=== PATIENT | female | born 1995 | race Caucasian/White ===

== ENCOUNTER → 2016-12-19 | Outpatient (CLI) | payer BC | END | disposition home or self-care (01) | LOC: C.LAB1850 13:50 | PROVIDERS: ATTEND Obstetrics & Gynecology | DX: Z32.01 Encounter for pregnancy test, result positive (principal) ==

== ENCOUNTER → 2016-12-21 | Outpatient (CLI) | payer BC | END | disposition home or self-care (01) | LOC: C.LAB1850 13:52 | PROVIDERS: ATTEND Obstetrics & Gynecology | DX: O20.0 Threatened abortion (principal); Z3A.00 Weeks of gestation of pregnancy not specified ==

== ENCOUNTER → 2016-12-24 | Outpatient (CLI) | payer BC | END | disposition home or self-care (01) | LOC: C.LAB1850 08:17 | PROVIDERS: ATTEND Obstetrics & Gynecology | DX: O20.0 Threatened abortion (principal) ==

== ENCOUNTER → 2017-01-04 | Outpatient (CLI) | payer BC | END | disposition home or self-care (01) | LOC: C.LAB1850 11:06 | PROVIDERS: ATTEND Obstetrics & Gynecology | DX: O20.0 Threatened abortion (principal) ==

== ENCOUNTER → 2017-01-11 | Outpatient (CLI) | payer BC | END | disposition home or self-care (01) | LOC: C.LAB1850 09:31 | PROVIDERS: ATTEND Obstetrics & Gynecology | DX: O03.9 Complete or unspecified spontaneous abortion without complication (principal); Z3A.00 Weeks of gestation of pregnancy not specified ==

== ENCOUNTER → 2017-04-25 | Outpatient (CLI) | payer BC | END | disposition home or self-care (01) | LOC: C.LAB1850 08:35 | PROVIDERS: ATTEND Obstetrics & Gynecology | DX: O09.299 Supervision of pregnancy with other poor reproductive or obstetric history, unspecified trimester (principal) ==

== ENCOUNTER → 2017-05-02 | Outpatient (CLI) | payer BC | END | disposition home or self-care (01) | LOC: C.LAB1850 08:36 | PROVIDERS: ATTEND Obstetrics & Gynecology | DX: O09.299 Supervision of pregnancy with other poor reproductive or obstetric history, unspecified trimester (principal) ==

== ENCOUNTER → 2017-05-28 | Outpatient (CLI) | payer BC | END | disposition home or self-care (01) | LOC: C.PAPS 08:07 | PROVIDERS: ATTEND Obstetrics & Gynecology | DX: Z34.81 Encounter for supervision of other normal pregnancy, first trimester (principal) ==

== ENCOUNTER → 2017-05-28 | Outpatient (CLI) | payer BC ==
[2017-05-28 18:36] LABS: URINE APPEARANCE CLEAR (CLEAR); URINE BILIRUBIN NEG (NEG); URINE COLOR YELLOW; URINE NITRITE NEG (NEG); URINE SPECIFIC GRAVITY 1.015 (1.000-1.030); UROBILINOGEN NEG (NEG)
[2017-05-28 18:40] LABS: MANUAL MICROSCOPIC REQUIRED? NO; REVIEW REQ? NO
[2017-05-31 00:55] LABS: CHLAMYDIA TRACH RNA*** NOT DETECTED (NOT DETECTED); GC (NEIS GONORRHOEAE)RNA** NOT DETECTED (NOT DETECTED)
== END | disposition home or self-care (01) ==
LOC: C.LABSPEC 17:25
PROVIDERS: ATTEND Obstetrics & Gynecology
DX: Z34.81 Encounter for supervision of other normal pregnancy, first trimester (principal); Z3A.00 Weeks of gestation of pregnancy not specified

== ENCOUNTER → 2017-05-28 | Outpatient (CLI) | payer BC ==
[2017-05-28 16:42] LABS: BASO % 0.2 %; BASO ABS # 0.01 K/uL (0-0.2); COMPLETE YES; EOS % 1.2 %; HEMATOCRIT 38.5 % (37-47); IG% 0.2 %; LYMPH % 31.7 %; MEAN CELL VOLUME 86.7 fL (80-100); MEAN CORPUSCULAR HEMOGLOBIN 28.4 pg (25-34); MEAN CORPUSCULAR HGB CONC 32.7 g/dl (32-36); MEAN PLATELET VOLUME 11.4 fL (7.4-10.4); MONO % 8.5 %; NEUT % 58.2 %; PLATELET COUNT 211 K/uL (130-400); RED BLOOD COUNT 4.44 M/uL (4.2-5.4); WHITE BLOOD COUNT 5.04 K/uL (4.8-10.8)
== END | disposition home or self-care (01) ==
LOC: C.LAB1850 15:29
PROVIDERS: ATTEND Obstetrics & Gynecology
DX: Z34.81 Encounter for supervision of other normal pregnancy, first trimester (principal); Z3A.00 Weeks of gestation of pregnancy not specified

== ENCOUNTER → 2017-07-16 | Outpatient (CLI) | payer BC ==
[2017-07-16 18:15] LABS: GTGD 50 Grams
[2017-07-18 14:35] LABS: AFP CONCENTRATION 21.5 NG/ML; AFP MULTIPLE OF MEDIAN 0.73; AFPTS INSULIN DEP DIABETIC? NO; AFPTS MATERNAL WT 172 LBS; ALPHA-FETOPROTEIN RACE CAUCASIAN=W; CIGARETTE SMOKER? NOT PROVIDED; HISTORY OF NTD NO; REPEAT SAMPLE? NO
== END | disposition home or self-care (01) ==
LOC: C.LAB1850 16:07
PROVIDERS: ATTEND Obstetrics & Gynecology
DX: Z34.82 Encounter for supervision of other normal pregnancy, second trimester (principal)

== ENCOUNTER → 2017-08-05 | Outpatient (CLI) | payer BC ==
[2017-08-05 16:59] LABS: URINE APPEARANCE CLEAR (CLEAR); URINE BILIRUBIN NEG (NEG); URINE COLOR YELLOW; URINE NITRITE NEG (NEG); URINE SPECIFIC GRAVITY 1.015 (1.000-1.030); UROBILINOGEN NEG (NEG)
[2017-08-05 17:01] LABS: MANUAL MICROSCOPIC REQUIRED? NO; REVIEW REQ? NO
== END | disposition home or self-care (01) ==
LOC: C.LAB1850 15:40
PROVIDERS: ATTEND Obstetrics & Gynecology
DX: R30.0 Dysuria (principal)

== ENCOUNTER → 2017-10-08 | Outpatient (CLI) | payer OTHER ==
[2017-10-08 16:29] LABS: HEMATOCRIT 32.7 % (37-47); HEMOGLOBIN 10.9 g/dL (12.0-16.0)
== END | disposition home or self-care (01) ==
LOC: C.LAB1850 15:36
PROVIDERS: ATTEND Obstetrics & Gynecology
DX: Z34.02 Encounter for supervision of normal first pregnancy, second trimester (principal)

== ENCOUNTER 2018-01-02 22:50 | Inpatient (IN) | payer OTHER ==
[~2018-01-02] VITALS: Ht 170.2 cm; Wt 95.9 kg
[2018-01-02] MEDS ORDERED: LACTATED RINGER'S 1000ML 1,000 ML IV PRN (23:29)
[2018-01-02] MEDS ORDERED: CEFAZOLIN IV 2,000 MG in DEXTROSE 5% 50ML 50 ML IV SCH (23:45)
[2018-01-02] MEDS ORDERED: PREN1TAB29 (23:49)
[2018-01-02 23:50] VITALS: Ht 170.2 cm; Wt 95.9 kg
[2018-01-02 23:50] LABS: HEMATOCRIT 36.7 % (37-47); HEMOGLOBIN 12.3 g/dL (12.0-16.0); MEAN CELL VOLUME 80.1 fL (80-100); MEAN CORPUSCULAR HEMOGLOBIN 26.9 pg (25-34); MEAN CORPUSCULAR HGB CONC 33.5 g/dl (32-36); MEAN PLATELET VOLUME 11.6 fL (7.4-10.4); PLATELET COUNT 202 K/uL (130-400); RED CELL DISTRIBUTION WIDTH CV 13.9 % (11.5-14.5)
[2018-01-02] MEDS: CEFAZOLIN IV 2,000 MG in SYRINGE 0 ML IV SCH (23:51)
[2018-01-03] MEDS ORDERED: BUPIVACAINE 0.25% 30 ML VIAL ONE ×2 (00:52→10:17)
[2018-01-03] MEDS ORDERED: EpHEDrine SULFATE INJ 50 MG/ML AMP ONE (00:52)
[2018-01-03] MEDS ORDERED: FENTANYL 2MCG/ML ROPIV 1.25MG/ML 100ML BAG ONE (00:52)
[2018-01-03] MEDS ORDERED: FENTANYL CITRATE INJ 50 MCG/1 ML 2 ML VIAL ONE ×2 (00:54→10:18)
[2018-01-03] MEDS ORDERED: LACTATED RINGER'S 1000ML 500 ML IV PRN ×2 (01:13→01:31)
[2018-01-03] MEDS ORDERED: OXYTOCIN 30 UNITS/500ML NSS IV PRN ×2 (01:15→13:45)
[2018-01-03] MEDS: LACTATED RINGER'S 1000ML 1,000 ML IV SCH ×3 (01:30→12:17)
[2018-01-03] MEDS ORDERED: NALOXONE HCL INJ 1 MG in SODIUM CHLORIDE 0.9% 1000ML 1,000 ML IV PRN (01:31)
[2018-01-03] MEDS ORDERED: ONDANSETRON INJ 2 MG/ML 2 ML VIAL IV PRN (01:45)
[2018-01-03] MEDS ORDERED: NALOXONE HCL INJ 0.4 MG/1 ML VIAL/CARP IV PRN (01:45)
[2018-01-03] MEDS ORDERED: EpHEDrine SULFATE INJ 50 MG/ML AMP IV PRN (01:45)
[2018-01-03] MEDS ORDERED: NALBUPHINE HCL INJ 10 MG/ML AMP IV PRN (01:45)
[2018-01-03] MEDS ORDERED: FENTANYL CITRATE INJ 50 MCG/1 ML 2 ML VIAL XX ONE (01:45)
[2018-01-03] MEDS ORDERED: DiphenhydrAMINE HCL 50 MG/ML VIAL IV PRN (01:45)
[2018-01-03] MEDS: FENTANYL 2MCG/ML ROPIV 1.25MG/ML 100ML BAG EPI PRN ×2 (07:04→09:42)
[2018-01-03] MEDS: CEFAZOLIN IV 2,000 MG in SYRINGE 0 ML IV SCH (07:54)
--- NOTE | 2018-01-03 10:35 | Anesthesiology Progress Note ---
Post OP Pain Management Date & Time of Service January 03, 2018 at 10:30 Subjective Therapies: Epidural/IV Drugs, Marcaine, Fentanyl pt c/o pain 04/11 Objective Cathether Site: examined, palpated, intact, dry, non-tender, without erythma, without exudate Assessment & Plan Pain Relief Assessment: will bolus epidural catheter Plan: At 10:26am,pt epidural catheter bolused w/ 12 ml o.17% bupivacaine + 100 mcgs fentanyl ,w/ incremental aspirations and injections every 2 ml;no CSF or blood; vital signs stable
[2018-01-03] MEDS ORDERED: HYDROCORTISONE ACETATE 25 MG SUPP PR PRN ×2 (13:45→20:15)
[2018-01-03] MEDS ORDERED: ACETAMINOPHEN 325 MG TAB PO PRN ×2 (13:45→20:15)
[2018-01-03] MEDS ORDERED: OXYCODONE/ACETAMINOPHEN 5-325 TAB PO PRN ×2 (13:45→20:15)
[2018-01-03] MEDS ORDERED: LANOLIN OINT EXT PRN ×2 (13:45→20:15)
[2018-01-03] MEDS ORDERED: BENZOCAINE 20% AER SPR 82.5 GM CAN EXT PRN ×2 (13:45→20:15)
[2018-01-03] MEDS ORDERED: SUPERCREAM 0.870 % 15GM JAR EXT PRN ×2 (13:45→20:15)
--- NOTE | 2018-01-03 14:27 | Anesthesia Procedure Note ---
Anesthesia Epidural Removal Nt Date & Time January 03, 2018 at 14:27 Vital Signs Pain Intensity: 6.0 Notes Mental Status: alert / awake / arousable, participated in evaluation Nausea / Vomiting: adequately controlled Pain: adequately controlled Airway Patency, RR, SpO2: stable & adequate BP & HR: stable & adequate Hydration State: stable & adequate Neuraxial Anesthesia: was administered Anesthetic Complications: no major complications apparent, pt satisfied with anesthetic care Epidural: removed without complications, with tip intact
--- NOTE | 2018-01-03 14:41 | DELIVERY SUMMARY ---
DATE OF OPERATION: 01/03/2018 PREDELIVERY DIAGNOSES: 1. A 21-year-old G2, P0-0-1-0 at term. 2. Spontaneous labor. 3. Group B strep positive. POSTDELIVERY DIAGNOSES: 1. A 21-year-old G2, P0-0-1-0 at term. 2. Spontaneous labor. 3. Group B strep positive. PROCEDURES: Spontaneous vaginal delivery and repair of second degree perineal laceration. FINDINGS: Viable male , Apgars 8 and 9, weight pending. Please see nursery records. COMPLICATIONS: None. ANESTHESIA: Epidural. ESTIMATED BLOOD LOSS: 400 mL. DESCRIPTION OF DELIVERY: The patient progressed to complete with epidural anesthesia. She labored down and then she began to push. She then spontaneously vaginally delivered a viable male from the cephalic presentation. The head delivered in left occiput anterior position. No nuchal cord was noted. The anterior shoulder delivered, followed by the posterior shoulder, followed by the body of the baby, and was placed in mother's abdomen and a spontaneous cry was heard. The cord was doubly clamped and cut. Cord blood was obtained. The placenta was then delivered spontaneously intact with the 3-vessel cord. Pitocin was given. The uterus and vagina were cleared off all clots and debris. The uterus became firm. The cervix, vagina, and perineum were inspected and a second degree perineal laceration was noted that was deep, it went directly to the anal sphincter, however, this was not torn. Two figure of eight stitches were placed in the anterior and superior aspects of the anal sphincter muscle just to give it support and then the second degree perineal laceration was repaired in standard fashion with 3-0 Vicryl and a running stitch. Excellent hemostasis was observed. Sponge, instrument, and needle counts were correct at the conclusion of the delivery x2. The patient and baby tolerated the delivery well and are recovering in stable and good condition in the room. I attest to the content of the Intraoperative Record and any orders documented therein. Any exceptions are noted below. MTDD
[2018-01-03 16:45] VITALS: BP 138/82; PULSE 112; TEMP 36.5
[2018-01-03] MEDS: DOCUSATE SODIUM 100 MG CAP PO SCH (20:00)
[2018-01-03] MEDS: IBUPROFEN 600 MG TAB PO PRN (20:09)
[2018-01-03 20:10] VITALS: BP 122/80; PULSE 90; TEMP 36.8
[2018-01-03] MEDS ORDERED: IBUPROFEN 600 MG TAB PO PRN (20:15)
[2018-01-03] MEDS ORDERED: COUGH DROP (SUGAR FREE) LOZ 24 LOZ/1 BOX LOZ ONE (20:59)
[2018-01-04 00:01] VITALS: BP 118/74; PULSE 92; TEMP 37.1
[2018-01-04 03:15] VITALS: BP 120/81; PULSE 85; TEMP 37
[2018-01-04] MEDS: IBUPROFEN 600 MG TAB PO PRN ×5 (03:16→23:09)
--- NOTE | 2018-01-04 06:12 | Progress Note ---
Subjective January 04, 2018. Subjective conversation w/ patient, physical exam Ambulation: ambulating normally Voiding: no voiding problems Passing Gas: Yes Diet Tolerance: Regular Diet Lochia: Moderate Feeding Type: Bottle Feeding Review of Systems Constitutional: No problem reported Respiratory: No problem reported Cardiac: No problem reported Breast: No problem reported Abdomen: No problem reported Female : No problem reported Objective Vital Signs Date Time Temp Pulse Resp B/P (MAP) Pulse Ox O2 Delivery O2 Flow Rate FiO2 01/04/18 03:15 37.0 85 18 120/81 (94) Room Air 01/04/18 00:01 37.1 92 18 118/74 (89) Room Air 01/04/18 00:01 Room Air 01/03/18 20:10 36.8 90 16 122/80 (94) Room Air 01/03/18 20:10 Room Air 01/03/18 16:45 Room Air 01/03/18 16:45 36.5 112 16 138/82 (100) Room Air Physical Exam General Appearance: WELL-APPEARING, NO APPARENT DISTRESS Respiratory/Chest: no respiratory distress Cardiovascular: regular rate, rhythm Abdomen: non tender, soft Fundus: Firm Extremities: normal inspection Laboratory Results Last 24 Hours Test 01/04/18 04:44 Assessment and Plan Post- Day#: 1 Continue Routine Care: PPD#1 doing well. Routine care. Anticipate discharge home tomorrow.
--- NOTE | 2018-01-04 06:15 | Discharge Instructions ---
Discharge Instructions Date of Service January 04, 2018. Admission Reason for Admission: 40 Weeks Gestation Of Discharge Discharge Diagnosis / Problem: s/p Discharge Goals Goal(s): Routine recovery after delivery Activity Recommendations Activity Limitations: per Instructions/Follow-up section . Instructions / Follow-Up Instructions / Follow-Up ACTIVITY RECOMMENDATIONS: * Gradual return to full activity over the next 2-3 weeks. * No lifting - nothing heavier than baby over the next 2-3 weeks. * Do not engage in vigorous exercise, sexual activity or sports until cleared by your physician. * Do not drive or operate any motorized equipment until cleared by your physician. * You may shower/bathe daily. MEDICATIONS: For discomfort or pain, you may use Acetaminophen (Tylenol), Ibuprofen (Advil), or Naproxen (Aleve) following the package directions. For constipation you may use Colace following the package directions. BREAST CARE: If you are not breast feeding: * Wear a supportive bra 24 hours a day for one to two weeks. * Avoid stimulating your breasts and nipples as much as possible during the first few weeks after delivery. * When taking a shower, have the warm water hit your back, not breasts. * When your breasts feel full, apply ice packs. Usually three to four times a day helps ease the discomfort. * Take a mild pain medication (Tylenol / Motrin) when you are uncomfortable. If breast feeding: * Use breast milk to lubricate nipples. Lansinoh cream may be used for sore nipples. You do not need to remove cream prior to breast feeding. If using a different brand of cream, check the label for directions regarding removal of cream prior to nursing. * Wear a supportive bra. * If having problems with breasts or breast feeding, call a beauty consultant or your health care provider. EPISIOTOMY CARE: After delivery, if you have an episiotomy (stitches), the following steps will ease discomfort and aid healing. * For the first 24 hours after delivery, place ice packs next to your episiotomy to help reduce swelling. * After the first 24 hour-period, sitz baths, either portable or in the tub, are suggested. A shower with a shower arm sprayed over the episiotomy may be comforting. * Tere care should be done after each voiding and bowel movement. Squirt warm water from a plastic bottle over the perineum (region of the body between the anus and urinary opening) and pat dry. * Use Dermoplast to ease discomfort. Shake container. [place] directly over the episiotomy. Place a Tucks on a clean sanitary pad next to your episiotomy. SPECIAL CARE INSTRUCTIONS: When you are discharged from the hospital, it is important for you to follow the instructions listed below: * During the first week at home, you should be able to care for yourself and your baby. In addition, the usual light household activities are encouraged. * Limit your activities to the way you feel. Do not try to clean the house or move furniture. Be sensible. * If you actively engage in sports and have done so up until the time of your delivery, you may resume these activities as soon as you feel able. This may take up to one month or even longer. Use good judgment. * Continue to take your vitamins for at least six weeks after the of your baby. * Your diet need not be limited unless you were on a special diet before your delivery. Breast-feeding mothers need around 2500 calories per day and at least 64-80 ounces of fluid per day (8 to 10 glasses). * You should eat foods from the four major food groups. Crash diets or fad diets are to be avoided. Eating lean meats, fresh fruits and vegetables, low-fat dairy products, high fiber foods and a regular exercise program, will help you get back to your pre- weight without putting your health at risk. * Constipation is sometimes a problem after delivery. Take a mild laxative as needed. If breast feeding, Milk of Magnesia is acceptable to use. You may use a suppository or Fleets enema if no episiotomy. * A daily shower or tub bath is suggested. Be sure to thoroughly and gently dry the perineum. * A bloody vaginal discharge will usually continue until around four weeks post . A small amount of bleeding may continue for as long as six weeks. Vaginal discharge changes from the bright red bleeding after delivery to pink then brownish and finally yellowish-pink before becoming white and disappearing. * Bleeding may increase with activity. Your first period may come in 4-8 weeks. If you are breast feeding, your period may be delayed even longer. * Morrill (sex) can begin whenever both you and your partner feel comfortable and do not have any form of genital infection. It is recommended that you wait at least six weeks for internal and external healing to occur. If you have questions, please talk to your health care practitioner. A condom should be used to prevent infection and . * Foreplay, gentle intercourse and lubrication is very important the first several times to prevent pain. A water-based lubricant such as K-Y jelly or Astroglide may be used. * If you have RH negative blood and your baby is RH positive, you will receive RHOGAM by injection prior to discharge. The nurse will give you a card to keep with you that has the date and place that you received RHOGAM after delivery. * During your care, you had a Rubella screen done to check for the presence of rubella antibodies in your blood. If your test was negative, you will receive a Rubella vaccine prior to discharge. This vaccine may cause a fever, soreness at the injection site and flu-like symptoms. If these symptoms persist, notify your health care practitioner. is not advised for one month after a Rubella vaccine. * Verbalizes understanding of car seat law as reviewed with patient nursing. * Car Seat hand-out given and reviewed with patient by nursing. * Shaken baby information reviewed with patient by nursing. Call you doctor if: * Heavy bleeding (saturating several pads an hour) or passing clots the size of your fist. * A fever >101 degrees F (38.3 degrees C) on two occasions four hours apart and /or chills. * Unusual pain in the pelvic or vaginal areas. * "Baby Blues" lasting longer than two weeks. If you have any questions or concerns, call your health care practitioner at . FOLLOW UP VISIT: * Please call the office at to schedule a 6 week examination. It is important you keep this appointment. It is important for you to make arrangements for either yearly or twice yearly check-ups thereafter. Current Hospital Diet Patient's current hospital diet: Regular OB Diet Discharge Diet Recommended Diet: Regular OB Diet Pending Studies Studies pending at discharge: no Medical Emergencies . Who to Call and When: Medical Emergencies: If at any time you feel your situation is an emergency, please call 911 immediately. . Non-Emergent Contact Non-Emergency issues call your: Primary Care Provider, Dress Shoe Inspector . . "Provider Documentation" section prepared by Suzanne Ramsey. .
[2018-01-04 07:45] VITALS: BP 119/82; PULSE 94; TEMP 36.3; O2SAT 99
[2018-01-04] MEDS ORDERED: DOCUSATE SODIUM 100 MG CAP PO SCH (08:00)
[2018-01-04 08:18] LABS: HEMATOCRIT 30.5 % (37-47); HEMOGLOBIN 9.9 g/dL (12.0-16.0)
[2018-01-04] MEDS: DOCUSATE SODIUM 100 MG CAP PO SCH ×2 (08:21→19:49)
[2018-01-04 11:25] VITALS: BP 116/75; PULSE 93; TEMP 36.4; O2SAT 99
[2018-01-04 15:50] VITALS: BP 134/83; PULSE 96; TEMP 36.5
[2018-01-04] MEDS ORDERED: BISACODYL 5 MG TABEC PO SCH ×2 (20:00)
[2018-01-04 23:10] VITALS: BP 129/75; PULSE 94; TEMP 36.4; O2SAT 98
[2018-01-05 07:15] VITALS: BP 115/76; PULSE 85; TEMP 36.7; O2SAT 99
[2018-01-05] MEDS: DOCUSATE SODIUM 100 MG CAP PO SCH (08:22)
[2018-01-05] MEDS: IBUPROFEN 600 MG TAB PO PRN (08:22)
--- NOTE | 2018-01-05 08:37 | Progress Note ---
Subjective January 05, 2018. Subjective conversation w/ patient, physical exam Ambulation: ambulating normally Voiding: no voiding problems Feeding Type: Bottle Feeding Objective Vital Signs Date Time Temp Pulse Resp B/P (MAP) Pulse Ox O2 Delivery O2 Flow Rate FiO2 01/04/18 23:10 98 Room Air 01/04/18 23:10 36.4 94 16 129/75 (93) 98 Room Air 01/04/18 15:50 36.5 96 16 134/83 (100) 01/04/18 15:50 Room Air 01/04/18 11:25 36.4 93 16 116/75 (89) 99 Room Air Physical Exam General Appearance: WELL-APPEARING, NO APPARENT DISTRESS Fundus: Firm, Non-Tender Extremities: no calf tenderness Assessment and Plan Post- Day#: 2 Continue Routine Care: - patient ready for d/c - instructions given - f/u in 6 weeks
[2018-01-05 12:55] VITALS: BP_DIAS 76; PULSE 85; TEMP 36.7
== END 2018-01-05 12:55 | disposition home or self-care (01) | DRG 775 ==
LOC: C.LD 22:50 → C.OPB 22:50 → C.LD 23:30 → C.OBG 01-03 16:17
PROVIDERS: ADMIT Obstetrics & Gynecology; ATTEND Obstetrics & Gynecology
PROC: 10E0XZZ Delivery of Products of Conception, External Approach (ICD-10-PCS; principal; 2018-01-03)
PROC: 0KQM0ZZ Repair Perineum Muscle, Open Approach (ICD-10-PCS; principal; 2018-01-03)
DX: O99.824 Streptococcus B carrier state complicating childbirth (principal); O70.1 Second degree perineal laceration during delivery; O99.52 Diseases of the respiratory system complicating childbirth; J45.909 Unspecified asthma, uncomplicated; Z3A.40 40 weeks gestation of pregnancy; Z37.0 Single live birth; Z88.0 Allergy status to penicillin; Z91.018 Allergy to other foods

== ENCOUNTER 2020-04-06 07:36 | Inpatient (IN) ==
[2020-04-06] MEDS ORDERED: OXYTOCIN 30 UNITS/500 ML BAG IV PRN ×3 (08:16→18:57)
[2020-04-06] MEDS ORDERED: CEFAZOLIN 1000MG 1,000 MG/7.5 ML SYR IV PRN (08:18)
--- NOTE | 2020-04-06 08:23 | History & Physical Report ---
Date of Service April 06, 2020 Assessment & Plan (1) Encounter for induction of labor: Mariposa is a 25 y/o female with a history of asthma as a child who is currently at 39-1/7 WGA with an WALLACE 04/13/20 as determined by LMP who is herefor elective induction of labor in the setting of a history of macrosomia (with last ). Uncomplicated current . She underwent successful placement of a cervical balloon last night in the setting of an unf avorable cervix. - s/p cervical balloon placement last night - Will proceed with IOL w/ Pitocin augmentation protocol - Anticipate - GBS+ with PCN allergy (rash) as child -- received intrapartum Ancef without complication during last /delivery. Will proceed with Ancef as intrapartum abx - Patient requests epidural -- anesthesia will be consulted Blood Type: O+ GBS: Positive Rubella: immune History of Present Illness Primary Care Provider: Beck Elizabeth MD Mariposa is a 25 y/o female with a history of asthma as a child who is currently at 39-1/7 WGA with an WALLACE 04/13/20 as determined by LMP who is here for elective induction of labor in the setting of a history of macrosomia (with last ). Her current was uncomplicated. She underwent successful placement of a cervical balloon last night without complication. Her last was only significant for being a GBS carrier; received Ancef during the intrapartum period given a known allergy to PCNs (got rash as child). Endorses contractions; good movement; no fluid loss; some blood after cervical balloon placement last night. External FHT and external uterine monitors used; Category I tracing; +FHT variability. Had regular appointments with OB. Labs: (09/16/19) -- See scanned lab reports Blood type: O+ Antibody screen: neg H.6 (01/20) Hct: 35.6 (01/20) WBC: 6.6 (09/16) Plt: 234 (09/16) Rubella: immune VDRL/RPR: NR Gonorrhea: neg Chlamydia: neg HIV: neg HbSAg: neg GBS: Positive Other screens: cff-DNA: Low Risk Allergies Allergy/AdvReac Type Severity Reaction Status Date / Time nut - unspecified Allergy Intermediate HIVES Verified 04/05/20 08:27 amoxicillin Allergy Mild HIVES Verified 04/05/20 08:27 apple Allergy Mild HIVES Verified 04/05/20 08:27 Penicillins Allergy Mild Verified 04/05/20 08:27 Home Medications Home Medications Medication Instructions Recorded Confirmed Type prenat.vits,jayson,diq-uafv-ecthx 1 tab PO DAILY 09/08/19 04/06/20 History Patient History Social History Smoking Status: Never smoker Second Hand Exposure: No; Do You Dip or Chew Tobacco: No; Tobacco Cessation Education Requested by Patient: No Hx Alcohol Use: No Hx Substance Use: No Preferred Language: Tajik Communication Ability: Effective Tier In Required: No Beliefs That Will Affect Care: None marital status: marital status details: Darren Odell (29) [phone] Current Living Situation: Family Current Living Situation Comment: Lives with , son, and 2 cats current occupational status: employed 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 No acute distress. Cardiac: Regular rate and rhythm, no murmurs/rubs/gallops. Respiratory: Clear to auscultation bilaterally a/p, no wheezes/rales/rhonchi. No increased work of breathing. Symmetrical chest rise. No respiratory distress. Pelvic: Dilation 3 cm; Effacement 50%; Station -[address] Pope Lower Extremities: No lower extremity edema or swelling. No deep calf pain. Syl's negative bilaterally Results & Data Vital Signs (Past 12 Hours) Vital Signs Temp Pulse Resp BP 04/06/20 07:49 36.4 C L 18 04/06/20 07:46 90 120/68 Supervising Physician Co-Signing Physician Notes I have reviewed the resident's note and examined the patient myself, and agree with the note above. Begin pitocin and Ancef; AROM when closer to 2nd dose abx. Resident Activity Tracking Resident Involvement: Resident Care Provided Care Provided: Adult Hospital Medicine and OB Delivery
[2020-04-06] MEDS ORDERED: CEFAZOLIN 2000MG 2,000 MG/15 ML SYR IV STA (08:24)
[2020-04-06] MEDS: LACTATED RINGER'S 1,000 ML IV PRN ×3 (08:40→17:53)
[2020-04-06 08:59] LABS: Hemoglobin 11.7 g/dL (12.0-16.0); Mean Corpuscular Hemoglobin 28.5 pg (25-34); Mean Corpuscular Volume 85.2 fL (80-100); Mean Platelet Volume 11.7 fL (7.4-10.4); Platelet Count 157 K/uL (130-400); RDW Coefficient of Variation 14.3 % (11.5-14.5); RDW Standard Deviation 44.2 fL (36.4-46.3); Red Blood Count 4.11 M/uL (4.2-5.4); White Blood Count 7.24 K/uL (4.8-10.8)
[2020-04-06 09:05] LABS: Mean Corpuscular Hgb Conc 33.4 g/dL (32-36)
[2020-04-06] MEDS ORDERED: ePHEDrine sulfate 50 MG/ML AMP ONE (11:40)
[2020-04-06] MEDS ORDERED: BUPIVACAINE 0.25% 30 ML VIAL ONE (11:40)
[2020-04-06] MEDS ORDERED: fentaNYL citrate 100 MCG/2 ML VIAL ONE (11:40)
[2020-04-06] MEDS ORDERED: fentaNYL 2MCG/ML ROPIV 1.25MG/ML 100 ML BAG EPI ONE (11:41)
--- NOTE | 2020-04-06 12:05 | Anesthesiology Consultation ---
Date of Service April 06, 2020 Assessment & Plan (1) Encounter for pre-operative examination: Chart Review Chart Review: Acceptable Risk for Labor Epidural History Height/Weight Height: 5 ft 7 in Weight: 97.976 kg Allergies Allergy/AdvReac Type Severity Reaction Status Date / Time nut - unspecified Allergy Intermediate HIVES Verified 04/05/20 08:27 amoxicillin Allergy Mild HIVES Verified 04/05/20 08:27 apple Allergy Mild HIVES Verified 04/05/20 08:27 Penicillins Allergy Mild Verified 04/05/20 08:27 Medications Home Medications Medication Instructions Recorded Confirmed Last Taken prenat.vits,jayson,fdp-drnk-mpuyn 1 tab PO DAILY 09/08/19 04/06/20 04/06/20 06:00 Active Medications Generic Name Dose Route Start Last Admin Trade Name Freq PRN Reason Stop Dose Admin Lactated Ringer's 1,000 mls @ 125 mls/hr 04/06/20 08:16 04/06/20 11:30 Lr IV 04/08/20 08:15 999 mls/hr .Q8H PRN Infusion L&D Protocol Protocol Oxytocin 30 units in 500 mls @ 11 mls/hr 04/06/20 08:16 04/06/20 12:00 Pitocin IV 04/08/20 08:15 0.78 units/hr .Q24H PRN 13 mls/hr Labor Induction/Augmentation Titration Protocol 0.66 UNITS/HR Past Medical History Medical History (Updated 04/06/20 @ 12:05 by Napoleon Mendez MD) Encounter for anatomic survey No pertinent past medical history Tibia and fibula open fracture, right repair surgery Past Family History Family History Mother Asthma Past Surgical History Surgical History (Updated 04/06/20 @ 12:04 by Napoleon Mendez MD) History of open reduction and internal fixation (ORIF) procedure S/P wisdom tooth extraction Social History Smoking Status: Never smoker Do You Dip or Chew Tobacco: No Hx Alcohol Use: No Hx Substance Use: No substance use type: does not use Physical Exam Vital Signs Last Vital Signs Temp 36.4 C L 04/06/20 07:49 Pulse 89 04/06/20 12:00 Resp 18 04/06/20 07:49 BP 123/70 04/06/20 11:59 Pulse Ox 100 04/06/20 12:00 Testing Laboratory Results 04/06/20 08:49
[2020-04-06] MEDS ORDERED: fentaNYL 2MCG/ML ROPIV 1.25MG/ML 100 ML BAG EPI PRN (12:32)
[2020-04-06] MEDS ORDERED: ePHEDrine sulfate 50 MG/ML AMP IV PRN (12:32)
[2020-04-06] MEDS ORDERED: NALOXONE HCL 1 MG in SODIUM CHLORIDE 0.9% 1000ML 1,000 ML IV PRN (12:32)
[2020-04-06] MEDS ORDERED: ONDANSETRON INJ 2 MG/ML 2 ML VIAL IV PRN (12:32)
[2020-04-06] MEDS ORDERED: NALOXONE HCL 0.4 MG/1 ML VIAL/CARP IV PRN (12:32)
[2020-04-06] MEDS ORDERED: Nursing to Pharmacy Communication SCH (18:00)
--- NOTE | 2020-04-06 18:49 | Delivery Summary ---
Vaginal Delivery Summary Date of Service April 06, 2020 Vaginal Delivery Summary DIAGNOSES: 1. Caceres intrauterine at 39wk gestation. 2. Induction of Labor. 3. Group B Streptococcus Pos. PROCEDURE: Spontaneous vaginal delivery and repair of second degree laceration. SURGEON: Kathrine Pope MD. LINING INSERTER: None. ESTIMATED BLOOD LOSS: 250 mL. COMPLICATIONS: None. PLACENTA: Spontaneous and intact with a 3-vessel cord. DISPOSITION: Stable to labor and delivery. DESCRIPTION: The patient pushed well and brought the head to in OA position. The 's head was allowed to deliver with contraction force and no further active pushing, with the perineum protected during this time. The shoulders delivered easily with a maternal pushing effort. There was no nuchal cord. The right shoulder was anterior. The shoulders and body delivered without any difficulty, and the infant was placed on the maternal abdomen. It was vigorous and moving all extremities, and making respiratory efforts. The cord was doubly clamped by the MD and then cut by the FOB. The placenta delivered spontaneously and was noted to be intact and with a 3VC. The cervix, vagina and perineum were examined and were found to have a shallow second degree laceration which was repaired with vicryl in the usual manner. The fundus was firm and lochia minimal immediately after delivery.
--- NOTE | 2020-04-06 18:53 | Anesthesia Procedure Note ---
Date of Service April 06, 2020 Anesthesia Post Epidural Note Vital Signs Vital Signs: Temp Pulse Resp BP Pulse Ox 36.8 C 97 H 18 140/68 97 04/06/20 17:51 04/06/20 18:45 04/06/20 18:45 04/06/20 18:45 04/06/20 18:36 Pain Intensity Back: Pain Intensity: 5 Notes Mental Status: alert / awake / arousable and participated in evaluation Nausea / Vomiting: adequately controlled Pain: adequately controlled Airway Patency, RR, SpO2: stable & adequate BP & HR: stable & adequate Hydration State: stable & adequate Neuraxial Anesthesia: was administered and sensory block is resolving Anesthetic Complications: no major complications apparent Epidural: Removed without complications and With tip intact
[2020-04-06] MEDS ORDERED: BENZOCAINE 20% AER SPR 82.5 GM CAN EXT PRN (18:57)
[2020-04-06] MEDS ORDERED: SUPERCREAM 0.870% 15 GM JAR EXT PRN (18:57)
[2020-04-06] MEDS ORDERED: HYDROCORTISONE ACETATE 25 MG SUPP PR PRN (18:57)
[2020-04-06] MEDS ORDERED: OXYCODONE/ACETAMINOPHEN 5mg/325mg TAB PO PRN (18:57)
[2020-04-06] MEDS ORDERED: ACETAMINOPHEN 325 MG TAB PO PRN (18:57)
[2020-04-06] MEDS: DOCUSATE SODIUM 100 MG CAP PO SCH (21:30)
[2020-04-06] MEDS: IBUPROFEN 600 MG TAB PO PRN (21:30)
[2020-04-07] MEDS: IBUPROFEN 600 MG TAB PO PRN ×5 (01:27→16:12)
--- NOTE | 2020-04-07 05:47 | Obstetrical Progress Note ---
Date of Service <Ye Mcdermott MD - Last Filed: 04/07/20 05:47> April 07, 2020 Assessment & Plan <Ye Mcdermott MD - Last Filed: 04/07/20 05:47> (1) (spontaneous vaginal delivery): Mariposa is a 25 y/o female who is now PPD #1 following IOL and subsequent (in setting of macrosomy in previous ) at 39 weeks. - Feels well today. Eating well, voiding well, ambulating well. - Pain well controlled with ibuprofen 600mg Q4H PRN. - Routine PPD care -- OOB, ambulation, diet progression as tolerated Subjective <Ye Mcdermott MD - Last Filed: 04/07/20 05:47> Mariposa is a 25 y/o female who is now PPD #1 following IOL and subsequent (in setting of macrosomy in previous ) at 39 weeks. Reports feeling well overall this morning. Endorses some abdominal cramping with pain well managed on analgesics. Voiding without difficulty. Tolerating meals overnight and able to ambulate some. Has begun to pass gas but not yet bowel movements. Some persistent lochia with some improvement this morning. Breast feeding. Review of Systems Denies fever, chills, sweats Denies shortness of breath, difficulty breathing, chest pain, palpitations, chest pressure. Denies breast pain. Denies dysuria. Denies headache. Physical Exam <Ye Mcdermott MD - Last Filed: 04/07/20 05:47> General: Alert, oriented. No acute distress. Cardiac: Regular rate and rhythm, no murmurs/rubs/gallops. Respiratory: Clear to auscultation bilaterally a/p, no wheezes/rales/rhonchi. No increased work of breathing. Symmetrical chest rise. No respiratory distress. Abdomen: Soft, nontender, nondistended. Bowel sounds present. Uterus: Uterine fundus firm, palpable 1 cm below umbilicus. Lower Extremities: No lower extremity edema or swelling. No deep calf pain. Syl's negative bilaterally. Results & Data <Ye Mcdermott MD - Last Filed: 04/07/20 05:47> Vital Signs (Past 12 Hours) Vital Signs Temp Pulse Pulse Resp BP BP Pulse Ox 04/07/20 05:05 36.6 C 89 16 106/70 99 04/06/20 23:45 36.8 C 94 H 16 117/74 98 04/06/20 21:15 36.7 C 100 H 16 113/73 97 04/06/20 21:04 95 H 133/62 04/06/20 21:03 102 H 166/73 H 04/06/20 21:00 100 H 18 121/69 04/06/20 20:45 91 H 136/73 04/06/20 20:30 96 H 18 142/71 H 04/06/20 20:16 94 H 133/73 04/06/20 20:00 110 H 18 132/75 04/06/20 19:45 89 18 138/76 04/06/20 19:30 94 H 18 123/74 04/06/20 19:16 88 129/61 04/06/20 19:15 18 04/06/20 19:01 96 H 126/69 04/06/20 19:00 36.8 C 18 04/06/20 18:45 97 H 18 140/68 04/06/20 18:36 94 H 97 04/06/20 18:31 95 H 98 04/06/20 18:30 97 H 18 136/79 04/06/20 18:26 106 H 98 04/06/20 18:23 115 H 137/79 04/06/20 18:21 119 H 97 04/06/20 18:16 117 H 100 04/06/20 18:11 94 H 100 04/06/20 18:09 91 H 135/81 04/06/20 18:06 91 H 99 04/06/20 18:01 103 H 99 04/06/20 17:56 96 H 99 04/06/20 17:53 96 H 125/79 04/06/20 17:51 36.8 C 94 H 18 98 04/06/20 17:46 92 H 98 <Kathrine Pope MD - Last Filed: 04/07/20 07:09> Co-Signing Physician Notes I have reviewed the resident's note and examined the patient myself, and agree with the note above. Resident Activity Tracking <Ye Mcdermott MD - Last Filed: 04/07/20 05:47> Resident Involvement: Resident Care Provided Care Provided: Adult [facility] Medicine and OB Delivery
[2020-04-07 06:40] LABS: Hematocrit (blood only) 33.7 % (37-47); Hemoglobin 11.3 g/dL (12.0-16.0); Mean Corpuscular Hgb Conc 33.5 g/dL (32-36); Mean Corpuscular Volume 86.4 fL (80-100); Mean Platelet Volume 11.5 fL (7.4-10.4); Platelet Count 135 K/uL (130-400); RDW Coefficient of Variation 14.5 % (11.5-14.5); RDW Standard Deviation 44.9 fL (36.4-46.3); White Blood Count 8.63 K/uL (4.8-10.8)
[2020-04-07] MEDS ORDERED: PRENATAL VITAMIN 1 TAB PO SCH (08:00)
[2020-04-07] MEDS: DOCUSATE SODIUM 100 MG CAP PO SCH (08:31)
[2020-04-07] MEDS ORDERED: DIPHTHERIA/TETANUS/PERTUSSIS 0.5 ML SYR/VIAL IM ONE (09:00)
== END 2020-04-07 19:10 | disposition home or self-care (01) | DRG 807 ==
LOC: 4S1 07:36 → 4S2 21:18